=== PATIENT | female | born 1955 | race Caucasian/White ===

== ENCOUNTER 2023-03-11 07:58 | Emergency (ER) | payer MEDICARE, BC ==
[2023-03-11] MEDS ORDERED: Sodium Chloride 0.9% 10 ML Syringe FLUSH PRN (08:07)
[2023-03-11 08:18] LABS: BASOPHILS PERCENT AUTO 0.4 % (0.0-1.0); EOSINOPHILS PERCENT AUTO 2.8 % (1.0-3.0); HEMOGLOBIN 13.8 g/dL (12.0-16.0); LYMPHOCYTES PERCENT AUTO 30.2 % (20.5-50.1); MEAN CORPUSCULAR HEMOGLOBIN 33.9 pg (27.0-34.0); MEAN CORPUSCULAR HGB CONC 34.5 g/dL (33.0-35.0); MEAN CORPUSCULAR VOLUME 98.3 fL (80-100); NEUTROPHILS PERCENT AUTO 54.6 % (42.2-75.2); PLATELET COUNT,PLT 246 10^3/uL (150-450); RED BLOOD CELL COUNT 4.07 10^6/uL (4.2-5.4); WHITE BLOOD CELL COUNT,WBC 7.8 10^3/uL (5.0-10.0)
[2023-03-11 08:38] LABS: CALCIUM 9.5 mg/dL (8.5-10.1); CREATININE 0.8 mg/dL (0.55-1.02); EST CRCL DRUG DOSING (CG) 69.78 mL/min
[2023-03-11] MEDS ORDERED: Dexamethasone 4 MG/ML SDV IVPUSH ONE (09:05)
[2023-03-11] MEDS ORDERED: Iopamidol 755 Mg/ML 100 ML Bottle IVPUSH ONE (09:45)
== END 2023-03-11 10:43 | disposition home or self-care (01) ==
LOC: DL.ED 07:58
DX: R07.89 Other chest pain (principal); E78.00 Pure hypercholesterolemia, unspecified; Z79.899 Other long term (current) drug therapy; Z86.16 Personal history of COVID-19; Z88.5 Allergy status to narcotic agent; Z91.030 Bee allergy status; Z88.8 Allergy status to other drugs, medicaments and biological substances
CPT/HCPCS: 36415; 70490; 71046; 71275; 80048; 84484; 85025; 85379; 93005; 93010; 96372; 99284; 99285; J1100; Q9967; J3490

== ENCOUNTER 2024-02-18 15:22 | Emergency (ER) | payer MEDICARE, BC ==
[2024-02-18] MEDS: Famotidine 20 MG/2 ML SDV IVPUSH ONE (15:57)
[2024-02-18] MEDS: methylPREDNISolone Sodium Succinate 125 MG/2 ML SDV IVPUSH ONE (15:58)
[2024-02-18] MEDS: diphenhydrAMINE 50 MG/ML SDV IVPUSH ONE (15:58)
[2024-02-18] MEDS: Sodium Chloride 0.9% 1,000 ML IV ONE (15:58)
[2024-02-18] MEDS: EPINEPHrine 1 MG/ML SDV IM ONE (17:12)
[2024-02-18] MEDS: Take Home: predniSONE 20 MG, 4 Tab Pack PO ONE (17:15)
== END 2024-02-18 17:22 | disposition home or self-care (01) ==
LOC: DL.ED 15:22
DX: T78.40XA Allergy, unspecified, initial encounter (principal); E78.00 Pure hypercholesterolemia, unspecified; Z86.16 Personal history of COVID-19; Z90.49 Acquired absence of other specified parts of digestive tract; Z79.899 Other long term (current) drug therapy; Z91.030 Bee allergy status; Z88.6 Allergy status to analgesic agent; Z88.5 Allergy status to narcotic agent; Z91.038 Other insect allergy status
CPT/HCPCS: 96372; 96374; 96375; 99283; A9270; J0171; J1200; J2919; J3490; J7030

== ENCOUNTER 2024-10-01 19:39 | Emergency (ER) | payer MEDICARE, BC ==
[2024-10-01] MEDS ORDERED: Sodium Chloride 0.9% 10 ML Syringe FLUSH PRN (20:03)
[2024-10-01] MEDS: fentaNYL 100 MCG/2 ML SDV IVPUSH ONE (20:22)
[2024-10-01] MEDS: Ondansetron 4 MG/2 ML SDV IVPUSH ONE (20:22)
[2024-10-01 20:39] LABS: BASOPHILS PERCENT AUTO 0.1 % (0.0-1.0); EOSINOPHILS PERCENT AUTO 1.5 % (1.0-3.0); HEMATOCRIT 43.6 % (37.0-47.0); HEMOGLOBIN 14.3 g/dL (12.0-16.0); LYMPHOCYTES PERCENT AUTO 4.9 % (20.5-50.1); MEAN CORPUSCULAR HEMOGLOBIN 32.4 pg (27.0-34.0); MEAN CORPUSCULAR HGB CONC 32.8 g/dL (33.0-35.0); MEAN CORPUSCULAR VOLUME 98.9 fL (80-100); MONOCYTES PERCENT AUTO 4.7 % (2-8); NEUTROPHILS PERCENT AUTO 88.8 % (42.2-75.2); PLATELET COUNT,PLT 202 10^3/uL (150-450); RED BLOOD CELL COUNT 4.41 10^6/uL (4.2-5.4); WHITE BLOOD CELL COUNT,WBC 8.9 10^3/uL (5.0-10.0)
[2024-10-01 20:45] LABS: APPEARANCE,URINE SLIGHTLY CLOUDY (CLEAR); BILIRUBIN,URINE NEGATIVE (NEGATIVE); COLOR,URINE YELLOW (YELLOW); GLUCOSE,URINE NEGATIVE (NEGATIVE); KETONES,URINE 40 (NEGATIVE); LEUKOCYTE ESTERASE,URINE TRACE (NEGATIVE); NITRITE,URINE NEGATIVE (NEGATIVE); OCCULT BLOOD,URINE NEGATIVE (NEGATIVE); PROTEIN,URINE 30 (NEGATIVE); UROBILINOGEN,URINE 0.2 mg/dL (0.2-1.0)
[2024-10-01 20:53] LABS: AMORPHOUS SEDIMENT,URINE FEW /HPF (NOT SEEN); BACTERIA,URINE FEW /HPF (0-FEW/HPF); EPITHELIAL CELLS,URINE FEW /HPF (NOT SEEN); MUCUS,URINE MODERATE /LPF (NOT SEEN); WBC,URINE 20-30 /HPF (0-5/HPF)
[2024-10-01 21:01] LABS: ALANINE AMINOTRANSFERASE,ALT 23 U/L (14-59); ALBUMIN 3.5 g/dL (3.4-5.0); ALKALINE PHOSPHATASE 107 U/L (46-116); ANION GAP 10.7 mEq/L (7-13); ASPARTATE AMNIOTRANSFERASE,AST 19 U/L (15-37); BILIRUBIN TOTAL 0.7 mg/dL (0.2-1.0); BLOOD UREA NITROGEN,BUN 27 mg/dL (7-18); BUN/CREATININE RATIO 32.9 (No establ ref range); CALCIUM 9.2 mg/dL (8.5-10.1); CARBON DIOXIDE,CO2 31 mmol/L (21-32); CHLORIDE,CL 100 mmol/L (98-107); CREATININE 0.82 mg/dL (0.55-1.02); GLUCOSE RANDOM 129 mg/dL (70-99); LIPASE 63 U/L (16-77); MAGNESIUM 1.7 mg/dL (1.8-2.4); POTASSIUM,K 3.7 mmol/L (3.5-5.1); SODIUM,NA 138 mmol/L (136-145)
[2024-10-01 21:02] LABS: LACTIC ACID 0.8 mmol/L (0.4-2.0)
[2024-10-01 21:03] LABS: PROTHROMBIN TIME 10.2 SEC (9.0-12.0); PTT,PARTIAL THROMBOPLSTIN TIME 23.8 SEC (22.0-34.0)
[2024-10-01 21:17] LABS: C-REACTIVE PROTEIN < 0.50 ng/dL (<=0.50); ESTIMATED GFR 78 mL/min (>=60)
[2024-10-01] MEDS ORDERED: Iopamidol 612 MG/ML 100 ML Bottle IVPUSH ONE (21:39)
== END 2024-10-01 22:44 | disposition home or self-care (01) ==
LOC: DL.ED 19:39
DX: K59.00 Constipation, unspecified (principal); E78.00 Pure hypercholesterolemia, unspecified; Z90.49 Acquired absence of other specified parts of digestive tract; Z79.899 Other long term (current) drug therapy; Z88.5 Allergy status to narcotic agent; Z88.8 Allergy status to other drugs, medicaments and biological substances; Z91.030 Bee allergy status
CPT/HCPCS: 36415; 72100; 74019; 74177; 80053; 81001; 83605; 83690; 83735; 85025; 85610; 85730; 86140; 87040; 87086; 96374; 96375; 99283; 99284; J2405; J3010

== ENCOUNTER 2025-02-15 16:49 | Emergency (ER) | payer MEDICARE, BC | END 2025-02-15 17:45 | disposition home or self-care (01) | LOC: DL.ED 16:49 | DX: T63.454A Toxic effect of venom of hornets, undetermined, initial encounter (principal); E78.00 Pure hypercholesterolemia, unspecified; Z90.49 Acquired absence of other specified parts of digestive tract; Z88.5 Allergy status to narcotic agent; Z88.6 Allergy status to analgesic agent; Z88.8 Allergy status to other drugs, medicaments and biological substances; Z91.030 Bee allergy status; Z79.899 Other long term (current) drug therapy | CPT/HCPCS: 99282 ==